=== PATIENT | male | born 1935 | race Caucasian/White ===

== ENCOUNTER 2017-03-16 22:04 | Emergency (ER) | payer MEDICARE, OTHER ==
[~2017-03-16] VITALS: Ht 177.8 cm; Wt 170.0 kg
--- NOTE | 2017-03-16 21:58 | ED.REPORT ---
HPI-Neurologic Deficit Date of Service Mar 16, 2017 ED Provider: Obed Tai Pt is an 81 year old male with a history of A-fib, diabetes, HTN, CHF, and AR who presents to the ED via EMS for a possible stroke onset at 21:00 today. He c/ o associated headache, difficulty speaking, and left facial droop. He denies chest pain, sensation to palpations, diplopia, and any other symptoms. Per EMS, the pt was eating dinner when he experienced difficulty speaking and his face started drooping. Upon arrival, the pt reports that he "doesn't know what was going wrong" and that his symptoms are no longer present. Per , the pt recently started developing dementia. Nursing Notes Stated Complaint: LEFT SIDE WEAKNESS Chief Complaint: Difficulty speaking Nursing Notes Reviewed: Yes Allergies: Coded Allergies: No Known Allergies (Verified Allergy, Unknown, 05/13/14) gentamicin (Verified Allergy, Unknown, Extrapyramidal Symptoms, 08/03/14) Scheduled Acetaminophen (Tylenol) 325 Mg Tablet 650 MG PO BID Digoxin (Digoxin) 125 Mcg Tablet 125 MCG PO 3X/WK Diltiazem ER (Diltiazem ER) 120 Mg Cap.er.24h 120 MG PO DAILY Furosemide (Furosemide) 80 Mg Tab 160 MG PO BID 8am &2pm Glipizide ER (Glipizide ER) 2.5 Mg Tab.er.24 2.5 MG PO 1100 Lactobacillus Acidophilus (Probiotic) 1 Each Capsule 1 EACH PO DAILY Metolazone (Metolazone) 5 Mg Tablet 5 MG PO BID Pravastatin (Pravastatin) 40 Mg Tablet 40 MG PO HS Ropinirole (Ropinirole) 1 Mg Tablet 1 MG PO HS Sertraline HCl (Sertraline) 20 Mg/1 Ml Oral.conc 25 MG PO DAILY Tamsulosin ER (Tamsulosin ER) 0.4 Mg Cap.er.24h 0.4 MG PO DAILY Vitamin B Complex/Vit C (Debbie-Delia Tablet) 1 Tab Tab 1 TAB PO DAILY Scheduled PRN Calcium Carbonate (Tums X-Str) 300 Mg Tab.chew 300 MG PO TID PRN PRN GERD 2 tab's 3xday General Time Seen by Provider: 21:59 Chief Complaint Other (Difficulty speaking) Hx Obtained From: Patient, EMS Arrived By: Ambulance Sudden in Onset?: Yes Onset Occurred: Just prior to arrival Symptom Duration: Duration unknown Severity: Current: No pain currently Severity: Maximum: No pain Recent Healthcare: Recent doctor visit Similar Sx Previous: No Risk Factors NIH Stroke Scale Level of Consciousness: Alert and responsive (0) Ask Month & Age: Both questions right (0) Open/Close Eyes/Hand Lead Ramp Service Man: Performs both tasks (0) Horizontal EO Movements: None (0) Visual Poole: Partial hemianopsia (1) Facial Palsy: Minor paralysis (1) Right Arm Motor Drift (10s): No drift 10 sec (0) Left Arm Motor Drift (10s): No drift 10 sec (0) Right Leg Motor Drift (5s): No drift 5 sec (0) Left Leg Motor Drift (5s): No drift 5 sec (0) Limb Ataxia FNF/Heel-Rivas: No ataxia (0) Sensation (Arms/Legs/Face): No sensory loss (0) Language Aphasia: Loss fluency ID matls (1) Dysarthria: Slurring intelligible (1) Extinction/Inattention: No exctinct/inattent (0) NIHSS Score: 4 Time NIHSS Performed: 22:16 Date NIHSS Performed: Mar 16, 2017 Past Medical History Past Medical History Atrial fibrillation Obstructive sleep apnea Myocardial infarction Osteomyelitis Arthritis ESRD - dialysis dependent Dyslipidemia Restless leg syndrome Reports: Congestive heart failure, Coronary artery disease, Diabetes mellitus ( Type II), GERD, Hypertension Past Surgical History Cataracts bilaterally Smoking History Former Smoker Social History Alcohol Use: Denies alcohol use"Social" Drug Use: Denies drug use Ambulatory Status Independent Review of Systems Eyes: Denies: Diplopia Cardiovascular: Denies: Chest pain, Palpitations Neurologic: Reports: Focal weakness, Headache, Slurred speech Complete sys rev & neg: except as marked. Physical Exam Initial Vital Signs Vital Signs (First) Date Time Temp Pulse Resp B/P Pulse Ox O2 Delivery O2 Flow Rate FiO2 03/16/17 22:05 36.6 85 27 149/54 95 Room Air Initial VS: Reviewed Neck: Supple, Full range of motion Abdomen / GI: Soft, Non-tender Skin: Warm, Dry, No cyanosis Psychiatric: Mood/affect normal, Behavior normal General/Constitutional: Awake, Alert (speech hesitant and slow but fluent), No acute distress, Cooperative Chronically ill and elderly appearing male. Head / Eyes: Atraumatic, Normocephalic, EOMI 3 mm reactive pupils Respiratory / Chest: Atraumatic, Breath sounds NL, Breath sounds = bilat Cardiovascular: Heart rate NL, Heart sounds NL, No murmurs Heart Rate / Rhythm: Positive: Irreg irregular rhythm Neurologic: Oriented X3 Speech: Positive: Slow Slow to respond. Low facial palsy. Visual poole intact; partial heminopsia. Mild aphasia and dysarthria. ENT: Atraumatic, Airway patent Mouth: Positive: Mucous membranes dry (Mildly) Upper Extremity / MS: Neurologic intact, Vascular intact Fistula in left arm. Ankle / Foot: Neurologic intact, Vascular intact Bruising on left ankle from prior sprain. Interpretation & Diagnostics Lab Results Interpretation Result Diagram: 03/16/17 2220 03/16/17 2220 Test 03/16/17 22:18 03/16/17 22:20 Hold Purple Top Tube Received (Received) Hold Blue Top Tube Received (Received) Hold [place] Top Tube Received (Received) White Blood Count 6.2th/mm3 (3.8-10.1) Red Blood Count 3.47mil/mm3 (4.40-5.80) Hemoglobin 11.4g/dL (13.8-17.2) Hematocrit 34.9% (41.0-50.0) Mean Corpuscular Volume 100.6fL (81-100) Mean Corpuscular Hemoglobin 32.9pg (27.0-35.0) Mean Corpuscular Hemoglobin Concent 32.7% (32.0-37.0) Red Cell Distribution Width 13.4% (12.3-15.4) Platelet Count 170bil/L (150-400) Neutrophils (%) (Auto) 74.2% (40-74) Lymphocytes (%) (Auto) 13.1% (14-46) Monocytes (%) (Auto) 9.3% (4-12) Eosinophils (%) (Auto) 2.6% (0-5) Basophils (%) (Auto) 0.5% (0-3) Prothrombin Time 11.0sec (8.1-12.5) Prothromb Time International Ratio 1.03ratio Activated Partial Thromboplast Time 27.0sec (22.8-33.0) Sodium Level 132mEq/L (134-144) Potassium Level 4.4mEq/L (3.5-5.2) Chloride Level 93mEq/L (97-108) Carbon Dioxide Level 23mmol/L (18-29) Blood Urea Nitrogen 30mg/dL (8-27) Creatinine 1.79mg/dL (0.76-1.27) Estimat Glomerular Filtration Rate 39mL/min (>59) Glucose Level 317mg/dL (60-99) Calcium Level 9.2mg/dL (8.5-10.1) Total Bilirubin 0.5mg/dL (0.0-1.2) Aspartate Amino Transf (AST/SGOT) 25U/L (0-50) Alanine Aminotransferase (ALT/SGPT) 19U/L (0-44) Alkaline Phosphatase 106U/L (25-160) Troponin T 0.296ug/L (0.0-0.011) Total Protein 7.6g/dL (6.4-8.4) Albumin 3.8g/dL (3.4-5.0) Alcohols < 10mg/dL (0-10) ECG Interpretation ECG Interpretation: Atrial fibrillation with a rate of 79. Incomplete left bundle branch block. LVH with secondary repolarization abnormality. Inferior infarcht, old. Time: 22:22 Interpreted by: ED physician X-Ray Chest Interpretation Chest Xray Interpretation: Increased interstitial markings and scarring, but nothing acute. View: Portable, 1 view Interpretation / Wet Read by: Wet read ED physician CT Head Interpretation No CT evidence of hemorrhage, mass, or acute infarct. Transmitted to the ED at 22:20 by Alexandru Rankin M.D. Study: Head CT no contrast Interpretation / Wet Read by: Interpret - Radiologist, Discussed w radiologist Procedures HEAD/NECK CTA WITH BRAIN PERFUSION: CT ANGIOGRAM NECK - CONCLUSION: Atherosclerosis with 50% stenosis of the left proximal ICA. No vessel occlusion. Remaining vessels are patent. Limited evaluation due to dental metal artifact. Thyromegaly and bilateral thyroid nodules. Nonspecific mediastinal adenopathy. Neoplasm is not excluded. BRAIN CTA - CONCLUSION: Intracranial atherosclerosis, with bilateral cavernous ICA stenosis estimated at about 50%. Remaining vessels are patent. No occlusions. Transmitted to the ED at 00:41 by Lola Arteaga M.D. Thrombolytic Therapy - Stroke Time: 23:25 Procedure Performed by: ED physician Consent / Timeout / Setup: Consent from spouse, Time-out performed, Oxygen administered, Pulse oximeter applied, senior developer applied Neurologist Contacted: Yes rtPA Administration: rtPA admin per protocol Post-Procedure: No complications, Tolerated procedure well, Patient stable Re-Eval/Medical Decision Med Decision/Clinical Course 81-year-old dialysis patient presents with acute onset of stroke about an hour prior to arrival here. Family was unable to arrive for another hour roughly. Stroke score initially 4. Marked improvement reportedly from his initial evaluation the field. However, his recent baseline function is been fairly good, reading the paper and interacting. He appears to have difficulty reading mild aphasia and perhaps a left field cut that is not detectable by finger movement challenge, but causes him to only read the second half of the sentence or phrase these deficits persisted now two hours out. After discussion with the , and with [facility] neurology, Dr. Bautista, and after discussion of risk benefits alternatives, it was elected to proceed with TPA. He received a standard dose at about two hours and twenty-five minutes from onset of symptoms. He is continued to have slow improvement since then. CT angios prior to TPA shows significant carotid disease but no acute occlusion. He will need dialysis after the dye load. Troponin is elevated but he is a chronic renal dialysis case. Significance unclear and will require trending. No cardiovascular symptoms to report. EKG is nonacute. He is transferred to [facility] neurology, via ALS ambulance. Source of Hx: Old records Re-Evaluation/Progress #1: Time of Eval: 22:59 Re-Evaluation/Progress Note: Pt recheck. Spoke with pt's . She reports that the pt recently started to develop dementia, but the pt has been reading normally prior to today. Informed pt and of options for treatment. Pt and understand options for treatment. concurs with plan to treat with TPA. All questions addressed. Re-Evaluation/Progress #2: Time of Eval: 00:15 Re-Evaluation/Progress Note: Pt rechecked. Informed pt and of plan for transfer. Pt and understand and agree with plan for transfer. All questions addressed. Re-Evaluation/Progress #3: Time of Eval: 23:25 Re-Evaluation/Progress Note: Pt rechecked. Treated pt with TPA with his spouse's informed consent. All questions addressed. Re-Evaluation/Progress #4: Time of Eval: 00:54 Patient Status: Condition improved Re-Evaluation/Progress Note: Pt rechecked. Pt in process of getting transferred; informed his family of the pt's improvement. All questions addressed. Consultation #1: Consulted With: Neurology Call Returned at: 22:43 Mobility Architect: Agrees with eval, Agrees with plan Note: Consulted with Dr. Wray, neurologist at [facility]. Discussed pt's case. Recommends to get an angio brain neck TPA. Consultation #2: Consulted With: Neurology Call Returned at: 23:28 Mobility Architect: Agrees with eval, Agrees with plan Note: Consulted with Dr. Wray. He does not accept admit and recommends admitting the pt to [facility]. Consultation #3: Referral / Consult Name: Kari Claire MD Consulted With: Hospitalist Call Returned at: 23:36 Mobility Architect: Agrees with eval, Agrees with plan Note: No unit beds were available, so she declined the admit. Consultation #4: Call Returned at: 00:10 Mobility Architect: Will see patient, Agrees with eval, Agrees with plan, Accepts admit Note: Consulted with Dr. Wray. He will accept pt for admit at [facility]. Counseled Regarding: Diagnosis, Lab results, Need for transfer Discharge & Departure Impression: Primary Impression: Embolic stroke involving posterior cerebral artery Laterality of affected vessel: right Qualified Code: I63.431 - Cerebral infarction due to embolism of right posterior cerebral artery Additional Impression: Intracranial atherosclerosis Disposition: Transfer, Acute Care Facility Discharge Condition All VS Reviewed: Yes Condition: Improved Referrals: Dash Morgan MD (PCP) Crit Care Except Billable Proc Time Spent: 30-74 minutes (60 min) Services Performed: Patient management by me, Time spent at bedside, Reviewing test results, Reviewing imaging, Discussing patient care, Documentation in record, Time with fam/surrogate Scribe Attestation Portions of this note were transcribed by Nimo Myles. I, Dr. Tai personally performed the history, physical exam and medical decision-making; I reviewed and confirmed the accuracy of the information in the transcribed note. Signed by: Bob Mead, 03/16/17 and 23:40. copies to: Dash Morgan MD, Christopher W MD Mar 16, 2017 21:58 Nimo Davidson Mar 16, 2017 22:05
[~2017-03-16 22:04] MED LIST: ACET-1890 PO; CALC-784 PO; DIGO125T73 PO; DILT-17 PO; FRSM80T PO; GLIP2.5T2 PO; LACT1CAP65 PO; METO5TAB5 PO; NEPHVIT PO; PRAV40TA PO; ROPI1TAB3 PO; SERT20OR6 PO; TAMS0.4C29 PO
[2017-03-16 22:05] VITALS: BP 149/54; PULSE 85; RESP 27; O2SAT 95
[2017-03-16 23:03] LABS: INR 1.03 ratio
[2017-03-16 23:06] LABS: BASOPHILS % (AUTO) 0.5 % (0-3); EOSINOPHILS % (AUTO) 2.6 % (0-5); MONOCYTES % (AUTO) 9.3 % (4-12); Mean Corpuscular Hemoglobin 32.9 pg (27.0-35.0); Mean Corpuscular Volume 100.6 fL (81-100); NEUTROPHILS % (AUTO) 74.2 % (40-74); Platelet Count 170 bil/L (150-400)
[2017-03-16 23:17] LABS: TROPONIN T 0.296 ug/L (0.0-0.011)
[2017-03-16] MEDS ORDERED: ALTEPLASE IV ONE (23:25)
[2017-03-16] MEDS ORDERED: Alteplase (No Charge) 1 mg/mL Syringe IV ONE (23:25)
[2017-03-16] MEDS ORDERED: Alteplase Dose Per Pharmacist XX ONE (23:35)
[2017-03-16] MEDS ORDERED: 0.9% Sodium Chloride 100 ML ONE (23:38)
[2017-03-17] MEDS ORDERED: 0.9% Sodium Chloride 100 ML IV SCH (00:30)
[2017-03-17 01:19] VITALS: BP 119/49; PULSE 75; RESP 23; O2SAT 95
--- NOTE | 2017-03-17 07:43 | DRSVH ---
PROCEDURE: CT BRAIN (TPA) ([id number]) INDICATIONS: LEFT SIDED WEAKNESS TECHNIQUE: Noncontrast 4.5 mm thick angled axial sections acquired from the foramen magnum to the vertex, with c oronal reformats. COMPARISON: [facility], CT, BRAIN W/O CONTRAST, 09/08/2013, 10:40. FINDINGS: Image quality: Excellent. CSF spaces: Basal cisterns are patent. No extra-axial fluid collections. Ventricles are normal in size and shape. Brain: No midline shift. No intracranial masses or hemorrhage. Hawthorne-white matter interface is norm al. Skull and face: Calvarium and visualized facial bones are intact, without suspicious lesions. Sinuses: Visualized sinuses and mastoids are clear. IMPRESSION: No CT evidence of acute intracranial pathology. There are no discrepancies with the preliminary report. This study fulfills neurological imaging criteria for inclusion or exclusion of acute stroke therapie s based on available published neurological imaging guidelines. Dictated by: Dewey Ramirez M.D. on 03/17/2017 at 7:40 Approved by: Dewey Ramirez M.D. on 03/17/2017 at 7:41
--- NOTE | 2017-03-17 08:40 | DRSVH ---
PROCEDURE: X-RAY CHEST ONE VIEW, PORTABLE ([id number]) INDICATIONS: stroke TECHNIQUE: One view of the chest was acquired. COMPARISON: [facility], , CHEST 1VW (PORTABLE), 09/08/2013, 12:09. FINDINGS: Surgical changes and devices: Right-sided central venous catheter has been removed. Lungs and pleura: No pleural effusions or pneumothorax. Bibasilar scarring or atelectasis otherwise the lungs are clear. Mediastinum: Mediastinal contours appear normal. Heart size is normal. Bones and chest wall: No suspicious bony lesions. Overlying soft tissues appear unremarkable. IMPRESSION: Bibasilar scarring or atelectasis. Early infection is less likely. Dictated by: Dewey Ramirez M.D. on 03/17/2017 at 8:36 Approved by: Dewey Ramirez M.D. on 03/17/2017 at 8:37
--- NOTE | 2017-03-17 09:44 | DRSVH ---
PROCEDURE: CT ANGIO BRAIN NECK TPA INDICATIONS: stroke TECHNIQUE: Pre-contrast 4.5 mm thick sections acquired from the foramen magnum to the vertex. After the adminis tration of intravenous contrast, 1 mm thick sections acquired from the aortic arch through the [place]. Post-contrast 4.5 mm thick sections then re-acquired from the foramen magnum to the vert ex. 3-dimensional fzhvgwp-gfewvchcc-ywcpjiospo (MIP) and/or volume rendering reformats were acquired of the central intracranial vasculature and neck separately. For radiation dose reduction, the foll owing was used: automated exposure control, adjustment of mA and/or kV according to patient size. COMPARISON: [facility], CT, BRAIN (TPA), 03/16/2017, 22:07. FINDINGS: Image quality: Excellent. BRAIN: CSF spaces: Ventricles are normal in size and shape. Basal cisterns are patent. No extra-axial flu id collections. Brain: No midline shift. No intracranial bleeds or masses. Hawthorne-white matter interface appears int act. Skull and face: Calvarium and facial bones appear intact, without suspicious lesions. Orbits appear normal. Sinuses: Sinuses and mastoids are clear. HEAD CT ANGIOGRAPHY: Anterior circulation: Intracranial internal carotid arteries are normal in size and flow with marked peripheral calcified atheromatous disease. The flow within the paired anterior cerebral arteries is normal and symmetric. The flow within the middle cerebral arteries is normal and symmetric. The an terior communicating artery is seen. No aneurysms are seen. Posterior circulation: Visualized portions of the vertebral arteries demonstrate normal caliber, and join to form a normal appearing basilar artery. Flow within the posterior cerebral arteries is norm al and symmetric. origin of the right posterior cerebral artery which is a benign variant. No a neurysms are seen. NECK CT ANGIOGRAPHY: Carotid system: The origins of the common carotid arteries appear patent. The common carotid arteri es demonstrate normal caliber and courses. The bifurcation regions are both patent containing calcif ied atheromatous plaque with no hemodynamically significant stenoses. The internal carotid arteries demonstrate normal calibers and courses. Posterior circulation: The origins of the vertebral arteries both appear widely patent. The more carmona perior extracranial portions of both vertebral arteries also demonstrate normal courses and calibers. They join to form a normal appearing basilar artery. Soft tissues: Visualized neck soft tissues demonstrate no suspicious abnormalities. Enlarged hetero geneous thyroid with coarse calcifications. Bones: No suspicious bony lesions. Visualized cervical spine appears normally aligned. IMPRESSION: 1. No hemodynamically significant stenoses or CT evidence of pathology in the arterial structures of the head or neck. Calcified atheromatous plaque approaches 50% stenosis in the carotid bulbs and cave rnous portions of the distal internal carotid arteries. 2. Enlarged thyroid. Recommend correlation with ultrasound as well as laboratory values on a nonemerg ent basis. 3. There are no discrepancies with the preliminary report. Dictated by: Dewey Ramirez M.D. on 03/17/2017 at 9:34 Approved by: Dewey Ramirez M.D. on 03/17/2017 at 9:42
== END 2017-03-17 00:50 | disposition short-term general hospital (02) ==
LOC: SED 22:04
DX: I63.431 Cerebral infarction due to embolism of right posterior cerebral artery (principal); I67.2 Cerebral atherosclerosis; I48.91 Unspecified atrial fibrillation; E11.22 Type 2 diabetes mellitus with diabetic chronic kidney disease; I25.2 Old myocardial infarction; I13.2 Hypertensive heart and chronic kidney disease with heart failure and with stage 5 chronic kidney disease, or end stage renal disease; N18.6 End stage renal disease; I50.9 Heart failure, unspecified; I25.10 Atherosclerotic heart disease of native coronary artery without angina pectoris; E78.5 Hyperlipidemia, unspecified; Z88.8 Allergy status to other drugs, medicaments and biological substances; Z87.891 Personal history of nicotine dependence; Z99.2 Dependence on renal dialysis; Z79.84 Long term (current) use of oral hypoglycemic drugs; Z88.1 Allergy status to other antibiotic agents
CPT/HCPCS: 36415; 37195; 70450; 70496; 70498; 71010; 80053; 82948; 84484; 85025; 85610; 85730; 93005; 99291; G0480; J2997; Q9967